=== PATIENT | male | born 1975 | race African-American/Black ===

== ENCOUNTER 2023-05-29 09:05 | Emergency (ER) | payer BC, OTHER ==
[~2023-05-29] VITALS: Ht 185.4 cm; Wt 90.0 kg
[2023-05-29 09:08] VITALS: BP 104/72; PULSE 89; RESP 18; TEMP 97.8; O2SAT 98
--- NOTE | 2023-05-29 13:21 | NUR ---
pt wa triaged today for hand pain and left before being seen by provider.
== END 2023-05-29 13:23 | disposition left against medical advice (07) ==
LOC: ER 09:05
DX: M79.641 Pain in right hand (principal); M79.642 Pain in left hand; Z53.21 Procedure and treatment not carried out due to patient leaving prior to being seen by health care provider
CPT/HCPCS: 73130; 99281